=== PATIENT | male | born 1970 | race Caucasian/White ===

== ENCOUNTER 2022-07-12 09:29 | Outpatient (REF) | payer OTHER, SELFPAY ==
[2022-07-12 11:06] LABS: MANUAL DIFF FLAG NO
[2022-07-12 11:29] LABS: Basophils Percent Auto 0.5 % (0-2); Eosinophils Absolute Auto 0.1 X10*3/uL (0.0-0.4); Eosinophils Percent Auto 2.8 % (0-4); Hematocrit 46.6 % (42.0-52.0); Hemoglobin 15.4 g/dl (14.0-18.0); Imm Gran Abs Auto 0.03 X10*3/uL (0.00-0.03); Imm Gran Pct Auto 0.7 % (0.0-0.4); Lymphocytes Absolute Auto 1.3 X10*3/uL (1.2-4.9); Lymphocytes Percent Auto 30.9 % (20-40); Mean Corpuscular Hemoglobin 27.8 pg (27.0-33.0); Mean Corpuscular Volume 84.1 fL (80.0-98.0); Mean Platelet Volume 9.8 fL (9.4-12.4); Monocytes Absolute Auto 0.3 X10*3/uL (0.1-1.2); Monocytes Percent Auto 7.7 % (2-11); Neutrophils Absolute Auto 2.5 x10*3/uL (2.0-8.3); Neutrophils Percent Auto 57.4 % (45-73); Platelet Count 221 X10*3/uL (160-400); Red Blood Count 5.54 X10*6/uL (4.60-5.80); Red Cell Distribution Width 12.7 % (11.0-16.0); White Blood Count 4.3 X10*3/uL (4.8-10.8)
[2022-07-12 12:30] LABS: Alanine Aminotransferase 27 U/L (0-40); Albumin Level 4.3 g/dL (3.5-5.0); Alkaline Phosphatase 52 U/L (39-117); Anion Gap 14 (12-20); Aspartate Amino Transferase 20 U/L (5-37); Bilirubin Total 1.1 mg/dL (0.0-1.0); Blood Urea Nitrogen 16 mg/dL (9-16); Calcium 10.4 mg/dL (8.4-10.2); Carbon Dioxide 25 mmol/L (22-29); Chloride 107 mmol/L (96-108); Cholesterol 246 mg/dL; Estimated Glomerular Filt Rate > 60; Glucose Random 97 mg/dL (60-115); HDL Cholesterol 64 mg/dL; LDL Cholesterol Calculated 147 mg/dl; Potassium 4.5 mmol/L (3.3-5.1); Sodium 141 mmol/L (135-145); Total Protein 6.7 g/dL (6.5-8.0); Triglycerides 179 mg/dL
[2022-07-12 12:31] LABS: Prostate Specific Antigen 0.81 ng/mL (<0.05-4.0); Vitamin D 25-OH Total 13.6 ng/mL (>30)
[2022-07-13 17:08] LABS: Lyme Abs Screen <0.90 index
== END 2022-07-12 09:30 | disposition home or self-care (01) ==
LOC: HO.MANLDS 09:29
PROVIDERS: Visit Provider Internal Medicine
DX: Z00.01 Encounter for general adult medical examination with abnormal findings (principal); I10 Essential (primary) hypertension; Z12.5 Encounter for screening for malignant neoplasm of prostate
CPT/HCPCS: 36415; 80053; 80061; 82306; 84153; 85025; 86617; 86618

== ENCOUNTER 2022-12-26 13:35 | Outpatient (REF) | payer OTHER, SELFPAY ==
[2022-12-26 17:23] LABS: MANUAL DIFF FLAG NO
[2022-12-26 17:40] LABS: Basophils Percent Auto 0.5 % (0-2); Eosinophils Absolute Auto 0.1 X10*3/uL (0.0-0.4); Eosinophils Percent Auto 2.7 % (0-4); Hematocrit 46.7 % (42.0-52.0); Hemoglobin 15.1 g/dl (14.0-18.0); Imm Gran Abs Auto 0.02 X10*3/uL (0.00-0.03); Imm Gran Pct Auto 0.5 % (0.0-0.4); Lymphocytes Absolute Auto 1.3 X10*3/uL (1.2-4.9); Mean Corpuscular HGB Conc 32.3 g/dl (31.0-36.0); Mean Corpuscular Hemoglobin 28.4 pg (27.0-33.0); Mean Corpuscular Volume 87.8 fL (80.0-98.0); Mean Platelet Volume 10.3 fL (9.4-12.4); Monocytes Absolute Auto 0.3 X10*3/uL (0.1-1.2); Monocytes Percent Auto 7.4 % (2-11); Neutrophils Absolute Auto 2.3 x10*3/uL (2.0-8.3); Neutrophils Percent Auto 56.9 % (45-73); Platelet Count 200 X10*3/uL (160-400); Red Blood Count 5.32 X10*6/uL (4.60-5.80); Red Cell Distribution Width 12.8 % (11.0-16.0)
[2022-12-26 17:56] LABS: Alanine Aminotransferase 22 U/L (0-40); Albumin Level 4.1 g/dL (3.5-5.0); Alkaline Phosphatase 47 U/L (39-117); Anion Gap 10 (12-20); Aspartate Amino Transferase 17 U/L (5-37); Bilirubin Total 0.9 mg/dL (0.0-1.0); Blood Urea Nitrogen 13 mg/dL (9-16); Calcium 10.2 mg/dL (8.4-10.2); Carbon Dioxide 26 mmol/L (22-29); Chloride 110 mmol/L (96-108); Estimated Glomerular Filt Rate > 60; Glucose Random 94 mg/dL (60-115); Potassium 4.5 mmol/L (3.3-5.1); Sodium 141 mmol/L (135-145); Total Protein 6.7 g/dL (6.5-8.0)
[2022-12-26 18:12] LABS: Vitamin D 25-OH Total 51.4 ng/mL (>30)
[2022-12-26 18:19] LABS: Prostate Specific Antigen 0.77 ng/mL (<0.05-4.0)
[2022-12-27 21:28] LABS: Lyme Abs Screen <0.90 index
== END 2022-12-26 13:36 | disposition home or self-care (01) ==
LOC: HO.MANLDS 13:35
PROVIDERS: Visit Provider Internal Medicine
DX: Z12.5 Encounter for screening for malignant neoplasm of prostate (principal); I10 Essential (primary) hypertension; E55.9 Vitamin D deficiency, unspecified; T14.8XXA Other injury of unspecified body region, initial encounter; W57.XXXA Bitten or stung by nonvenomous insect and other nonvenomous arthropods, initial encounter
CPT/HCPCS: 36415; 80053; 82306; 84153; 85025; 86617; 86618

== ENCOUNTER 2022-12-28 09:47 | Outpatient (REF) | payer OTHER, SELFPAY ==
[2023-01-02 16:42] LABS: Testosterone, Free 41.9 pg/mL (35.0-155.0); Testosterone, Total 230 ng/dL (250-1100)
== END 2022-12-28 09:48 | disposition home or self-care (01) ==
LOC: HO.MANLDS 09:47
PROVIDERS: Visit Provider Internal Medicine
DX: F52.21 Male erectile disorder (principal)
CPT/HCPCS: 36415; 84402; 84403

== ENCOUNTER 2023-01-20 14:26 | Outpatient (REF) | payer OTHER, SELFPAY ==
[2023-01-22 16:44] LABS: Follicle Stimulating Hormone 9.1 mIU/mL (1.6-8.0); Lutenizing Hormone 4.3 mIU/mL (1.5-9.3)
[2023-01-26 12:43] LABS: Testosterone, Free 32.5 pg/mL (35.0-155.0); Testosterone, Total 191 ng/dL (250-1100)
== END 2023-01-20 14:27 | disposition home or self-care (01) ==
LOC: HO.MANLDS 14:26
PROVIDERS: Visit Provider Internal Medicine
DX: R89.1 Abnormal level of hormones in specimens from other organs, systems and tissues (principal)
CPT/HCPCS: 36415; 83001; 83002; 84402; 84403

== ENCOUNTER 2023-02-10 11:58 | Outpatient (REF) | payer OTHER, SELFPAY ==
[2023-02-15 15:08] LABS: Testosterone, Free 39.8 pg/mL (35.0-155.0); Testosterone, Total 198 ng/dL (250-1100)
== END 2023-02-10 11:59 | disposition home or self-care (01) ==
LOC: HO.MANLDS 11:58
PROVIDERS: Visit Provider Internal Medicine
DX: F52.21 Male erectile disorder (principal)
CPT/HCPCS: 36415; 84402; 84403

== ENCOUNTER 2024-04-01 15:22 | Outpatient (REF) | payer OTHER, SELFPAY ==
[2024-04-04 06:07] LABS: Lyme Abs Screen <0.90 index
== END 2024-04-01 15:23 | disposition home or self-care (01) ==
LOC: HO.MANLDS 15:22
PROVIDERS: Visit Provider Internal Medicine
DX: T14.8XXD Other injury of unspecified body region, subsequent encounter (principal); W57.XXXD Bitten or stung by nonvenomous insect and other nonvenomous arthropods, subsequent encounter
CPT/HCPCS: 36415; 86617; 86618